=== PATIENT | male | born 1960 | race Caucasian/White ===

== ENCOUNTER 2018-09-05 06:57 | Outpatient (CLI) | payer OTHER ==
[~2018-09-05] VITALS: Ht 185.4 cm; Wt 75.3 kg
[2018-09-05] VITALS (10 sets, daily range): BP systolic 120–151; BP diastolic 68–83
[2018-09-05 07:35] LABS: HEMATOCRIT 45.8 % (39.0-53.0); HEMOGLOBIN 16.1 g/dL (13.0-17.5); RED BLOOD COUNT 4.75 x10^6/uL (4.30-5.70); RED CELL DISTRIBUTION WIDTH 15.3 % (11.5-14.5); WHITE BLOOD COUNT 6.7 x10^3/uL (4.0-11.0)
[2018-09-05] MEDS ORDERED: LIDOCAINE 1% Multi-Dose 20 ML VIAL. ONE (07:41)
[2018-09-05] MEDS ORDERED: IODIXANOL 320 MG/ML 100 ML VIAL. ONE (07:41)
[2018-09-05] MEDS ORDERED: HEPARIN for ARTERIAL LINE 1,500 ML ONE (07:41)
[2018-09-05 07:45] LABS: CALCIUM 9.3 mg/dL (8.5-10.1); CREATININE 0.9 mg/dL (0.7-1.3); GFR 86.7; POTASSIUM 4.2 mmol/L (3.5-5.1)
[2018-09-05 07:47] LABS: PROTHROMBIN TIME PATIENT 13.2 SEC (11.7-14.0)
[2018-09-05] MEDS ORDERED: potassium OTC PO (07:53)
[2018-09-05] MEDS ORDERED: LISI-130 PO (07:53)
[2018-09-05] MEDS ORDERED: OMEG1CAP38 PO (07:53)
[2018-09-05] MEDS ORDERED: ASPI81TA50 PO (07:53)
[2018-09-05] MEDS ORDERED: ATOR10TA60 PO (07:53)
[2018-09-05] MEDS ORDERED: fentaNYL PF VIAL 100 MCG/2 ML VIAL ONE (08:19)
[2018-09-05] MEDS ORDERED: NITROGLYCERIN 200 MCG/2 ML SYRINGE FOR CATH/VASC LAB. ONE ×2 (08:19→09:01)
[2018-09-05] MEDS ORDERED: MIDAZOLAM HCL/PF 2 MG/2 ML VIAL. ONE (08:19)
[2018-09-05] MEDS ORDERED: VERAPAMIL 5 MG/2 ML VIAL. ONE (08:19)
[2018-09-05] MEDS ORDERED: HEPARIN for IV BOLUS 10,000 UNIT/10 ML VIAL. ONE (08:19)
[2018-09-05] MEDS ORDERED: LIDOCAINE 2% 20 ML VIAL. IJ ONE (09:15)
[2018-09-05] MEDS ORDERED: CONTRAST GIVEN. MC PRN (09:15)
[2018-09-05] MEDS ORDERED: IODIXANOL 320 MG/ML 100 ML VIAL. IART ONE (09:15)
[2018-09-05] MEDS ORDERED: MIDAZOLAM HCL/PF 2 MG/2 ML VIAL. IV ONE (09:15)
[2018-09-05] MEDS ORDERED: fentaNYL PF VIAL 100 MCG/2 ML VIAL IV ONE (09:15)
[2018-09-05] MEDS ORDERED: NITROGLYCERIN 200 MCG/2 ML SYRINGE FOR CATH/VASC LAB. IART ONE (09:15)
[2018-09-05] MEDS ORDERED: HEPARIN for IV BOLUS 10,000 UNIT/10 ML VIAL. IART ONE (09:15)
[2018-09-05] MEDS ORDERED: VERAPAMIL 5 MG/2 ML VIAL. IART ONE (09:15)
[2018-09-05] MEDS ORDERED: HEPARIN for IV BOLUS 10,000 UNIT/10 ML VIAL. IV ONE (09:15)
--- NOTE | 2018-09-05 11:17 | CARD ---
MR#: [id number] Date of Study: 09/05/2018 Ordering Physician: ROMAN GARVEY, Referring Physician: ROMAN GARVEY, Tech: RT Rhiannon (R) FRANCY APPROVED REPORT Technologist: RT Rhiannon (R) FRANCY Nurse: Hazel Rabago R.N. Procedure(s) performed: MOD SED:53 min CONTRAST TOTAL: 87ML DAP:33.4 Gycm2 fluoro time: 5.6 min LHC, Coronary angiography HISTORY : The patient is a 57 year-old male with a history of . INDICATION The indication(s) include : unstable angina , dyspnea. CS Clinical Frailty Scale CSHA Clinical Frailty Scale: Vulnerable Heart Failure Heart Failure: No PROCEDURE NARRATIVE INFORMED CONSENT: After explaining the risks and benefits of the procedure and alternatives, informed consent was obtained. The patient was brought electively to the cardiac catheterization lab. A timeout was performed confi rming the patient's name, date of , procedure, and site of procedure. All necessary personnel w ere wearing the appropriate protective equipment and radiation monitor devices. (See nursing notes for medications administered). ACCESS: The right wrist was sterilely prepped and draped in the usual fashion. The right wrist was infiltrat ed with 1 mL of 2% lidocaine for subcutaneous anesthesia. A 6 British Terumo glide sheath was inserte d into the right radial artery without difficulty. CORONARY ANGIOGRAPHY: Right and left coronary angiography was performed using a 6Fr TIG 4.0 catheter. Left ventricular en d diastolic pressure was obtained with a pigtail catheter and pullback was performed. All catheter e xchanges and advancements were performed over a guidewire. CLOSURE: At case completion the right radial sheath was removed and a Terumo radial band was applied with 13 m l of air. COMPLICATIONS: The patient tolerated the procedure well and there were no immediate complications. FINDINGS: HEMODYNAMICS: LVEDP 5 mm Hg No gradient on LV to aortic pullback. AO: 128/78 LEFT VENTRICULOGRAM:Deferred, see echo report CORONARY ANGIOGRAPHY: LM is a large caliber vessel with normal angiographic appearance. LAD is a large caliber vessel with serial 50-60% stenoses in the proximal and mid segment and a mid f ocal 70% stenosis. D1 is a moderate caliber vessel with proximal 50% stenosis. LCx is a moderate caliber non-dominant vessel with a mid 60% stenosis extending into OM1. RCA is a large caliber dominant vessel with a proximal 100% occlusion RPDA and RPL are moderate caliber vessels with normal angiographic appearance. INTERVENTIONAL TECHNIQUE: iFR of the LAD, iFR of the Lcx. Based upon the intermediate stenoses in the LAD and circumflex a ischemic physiologic study was perfo rmed. Heparin was used for an to regulation. Through a 6 British EBU 3.5 guide catheter a 0.014 inch p ressure wire was advanced to the distal LAD after appropriate normalization and intracoronary nitrogl ycerin administration the IFR value was measured at 0.6. Subsequently, the wire was redirected into t he left circumflex where an IFR value of 0.74 was obtained. Final angiography after IFR valuation did not reveal any guide or wire related complications. The pat ient tolerated the procedure well. Conclusion 1. Normal left-sided filling pressures. 2. Three-vessel coronary artery disease with positive IFR of the LAD and circumflex. Recommendations Aggressive medical therapy. Evaluation of pulmonary disease to determine contribution of pulmonary disease to his dyspnea. Plan f or PFTs in the near future. Continue medical therapy for cardiac issues including aspirin, statin and blood pressure control. Cardiac surgery consultation has been obtained. Neurology evaluation for dizziness Signed by : Roman Garvey, Electronically Approved : 09/05/2018 11:17:29
--- NOTE | 2018-09-05 11:52 | NUR ---
Discharge Note: LIANNE SCHWAB [facility] Discharge instructions and discharge home medications reviewed with Patient and a copy given. All questions have been answered and understanding verbalized. The following instructions and handouts were given: radial site care,moderate sedation and smoking cessation Discontinued lines and drains: Peripheral IV intact. Patient discharged to Home or Self Care withSignificant Othervia Ambulated Patient needs to have echocardiogram but wanted to go outside to smoke first. IV was removed and patient informed that he would need to be restuck if an IV was needed for echocardiogram. Echo was notified that patient left to smoke and stated he would be back later. Informed patient and his significant other that they would need to check in at [facility] for [facility], both verbalized understanding.
== END 2018-09-05 11:30 | disposition home or self-care (01) ==
LOC: CCL 06:57
PROVIDERS: ATTEND Internal Medicine Cardiovascular Disease
DX: I25.110 Atherosclerotic heart disease of native coronary artery with unstable angina pectoris (principal); I10 Essential (primary) hypertension; J44.9 Chronic obstructive pulmonary disease, unspecified; Z85.828 Personal history of other malignant neoplasm of skin; F17.210 Nicotine dependence, cigarettes, uncomplicated; Z72.89 Other problems related to lifestyle; Z98.890 Other specified postprocedural states
CPT/HCPCS: 36415; 80048; 85027; 85610; 93458; 93571; 99152; 99153; C1769; C1887; C1892; J1644; J2001; J2250; J3010; J3490; Q9967

== ENCOUNTER → 2018-10-21 | Outpatient (CLI) | payer OTHER ==
[2018-09-05 11:15] VITALS: BP 147/75
[~2018-10-21] MED LIST: ASPI81TA50 PO; ATOR10TA60 PO; GLYC10.7 IH; LISI-130 PO; OMEG1CAP38 PO; VARE1TAB21 PO; potassium OTC PO
--- NOTE | 2018-10-21 11:25 | CARD ---
MR#: [id number] Date of Study: 10/21/2018 Ordering Physician: CATHERINE TORREZ, Referring Physician: CATHERINE TORREZ Tech: Sharifa Salinas JUSTO APPROVED REPORT EXAM: Two-dimensional and M-mode echocardiogram with Doppler and color Doppler. Other Information Quality : Fair INDICATION Cardiac Disease: CAD Pre-Op CABG RISK FACTORS Smoking 2D DIMENSIONS RVDd2.6 (2.9-3.5cm)Left Atrium(2D)3.3 (1.6-4.0cm) IVSd1.0 (0.7-1.1cm)Aortic Root(2D)2.7 (2.0-3.7cm) LVDd4.5 (3.9-5.9cm)LVOT Diameter2.2 (1.8-2.4cm) PWd0.9 (0.7-1.1cm)LVDs1.8 (2.5-4.0cm) FS (%) 30.0 %SV82.9 ml LVEF(%)60.0 (>50%) Aortic Valve AoV Peak Everett.137.7cm/sAoV VTI29.0cm AO Peak GR.7.6mmHgLVOT Peak Everett.125.6cm/s LVOT VTI 25.72cmAO Mean GR.4mmHg CAMILLE (VMAX)3.54ht5SZV (VTI)3.34cm2 Mitral Valve MV E Jrcoqtuz77.9cm/sMV DECEL [id number] MV A Tmcilnpf102.7cm/sMV UVR76ka E/A Ratio0.8MVA (PHT)2.94cm2 TDI E/Lateral E'12.1E/Medial E'14.6 Tricuspid Valve TR P. Feypwlqo728al/sRAP JWPFPQLY1clSr TR Peak Gr.33llFoMXYT48jnUy Pulmonary Vein S1 Bvyklpgm09.9cm/sD2 Bskwytvk97.6cm/s LEFT VENTRICLE The left ventricle is normal size. There is normal left ventricular wall thickness. The left ventricu lar systolic function is normal. The Ejection Fraction is 60-65%. There is normal LV segmental wall m otion. Transmitral Doppler flow pattern is Grade I-abnormal relaxation pattern. RIGHT VENTRICLE The right ventricle is normal size. The right ventricular systolic function is normal. ATRIA The left atrium size is normal. The right atrium size is normal. The interatrial septum is intact wit h no evidence for an atrial septal defect or patent foramen ovale as noted on 2-D or Doppler imaging. AORTIC VALVE The aortic valve is calcified but opens well. Doppler and Color Flow revealed no significant aortic r egurgitation. There is no significant aortic valvular stenosis. MITRAL VALVE The mitral valve is calcified but opens well. There is no evidence of mitral valve prolapse. There is no mitral valve stenosis. Doppler and Color-flow revealed mild mitral regurgitation. TRICUSPID VALVE The tricuspid valve is normal in structure and function. Doppler and Color Flow revealed trace tricus pid regurgitation. There is mild pulmonary hypertension. The PA pressure was estimated at 32 mmHg. Th ere is no tricuspid valve stenosis. PULMONIC VALVE The pulmonic valve is not well visualized. Doppler and Color Flow revealed no pulmonic valvular regur gitation. There is no pulmonic valvular stenosis. GREAT VESSELS The aortic root is normal in size. The ascending aorta is not well seen. The IVC is normal in size an d collapses >50% with inspiration. PERICARDIAL EFFUSION There is no evidence of significant pericardial effusion. Critical Notification Critical Value: No <Conclusion> The left ventricular systolic function is normal. The Ejection Fraction is 60-65%. There is normal LV segmental wall motion. Transmitral Doppler flow pattern is Grade I-abnormal relaxation pattern. Mild mitral regurgitation. Trace tricuspid regurgitation. The PA pressure was estimated at 32 mmHg. There is no evidence of significant pericardial effusion. Signed by : Buster Schuster, Electronically Approved : 10/21/2018 11:24:53
== END | disposition home or self-care (01) ==
LOC: ECHO 09:25
PROVIDERS: ATTEND Thoracic Surgery (Cardiothoracic Vascular Surgery)
DX: Z01.818 Encounter for other preprocedural examination (principal); I08.0 Rheumatic disorders of both mitral and aortic valves; I27.20 Pulmonary hypertension, unspecified; I25.10 Atherosclerotic heart disease of native coronary artery without angina pectoris; Z95.1 Presence of aortocoronary bypass graft
CPT/HCPCS: 93306

== ENCOUNTER → 2018-10-23 | Outpatient (CLI) | payer OTHER ==
[2018-09-05 11:15] VITALS: BP 147/75
[2018-10-23 14:16] LABS: BASO % 1 % (0-3); EOS # 0.4 x10^3/uL (0.0-0.7); EOS % 4 % (0-3); HEMATOCRIT 40.8 % (39.0-53.0); HEMOGLOBIN 14.2 g/dL (13.0-17.5); LYMPH # 1.7 x10^3/uL (1.0-4.8); LYMPH % 18 % (24-48); MEAN CORPUSCULAR HEMOGLOBIN 33 pg (25-35); MEAN CORPUSCULAR HGB CONC 35 g/dL (31-37); MEAN CORPUSCULAR VOLUME 96 fL (79-100); MONO # 0.8 x10^3/uL (0.0-1.1); MONO % 8 % (0-9); NEUT # 6.5 x10^3/uL (1.8-7.7); NEUT % 69 % (31-73); PLATELET COUNT 412 x10^3/uL (140-400); RED BLOOD COUNT 4.27 x10^6/uL (4.30-5.70); RED CELL DISTRIBUTION WIDTH 14.9 % (11.5-14.5); WHITE BLOOD COUNT 9.4 x10^3/uL (4.0-11.0)
[2018-10-23 14:32] LABS: PROTHROMBIN TIME PATIENT 13.3 SEC (11.7-14.0)
[2018-10-23 14:33] LABS: CALCIUM 9.3 mg/dL (8.5-10.1); CREATININE 0.9 mg/dL (0.7-1.3); GFR 86.7; POTASSIUM 4.2 mmol/L (3.5-5.1); TOTAL BILIRUBIN 0.3 mg/dL (0.2-1.0); TOTAL PROTEIN 7.9 g/dL (6.4-8.2)
--- NOTE | 2018-10-23 15:26 | RAD ---
CHEST PA LATERAL CLINICAL INDICATION: Preop chest x-ray. COMPARISON: None FINDINGS: Heart is normal in size. Lungs are clear. No pneumothorax or pleural effusion. Visualized bony thorax is within normal limits. IMPRESSION: No acute pulmonary process. Electronically signed by: Joe Gilbert DO (10/23/2018 3:23 PM) [facility]
[2018-10-23 23:10] LABS: HEMOGLOBIN A1C 6.2 % (4.8-5.6)
== END | disposition home or self-care (01) ==
LOC: SURGPAT 12:38
PROVIDERS: ATTEND Thoracic Surgery (Cardiothoracic Vascular Surgery)
DX: Z01.818 Encounter for other preprocedural examination (principal); I25.10 Atherosclerotic heart disease of native coronary artery without angina pectoris
CPT/HCPCS: 36415; 71046; 80053; 83036; 85025; 85610; 85730; 87641

== ENCOUNTER → 2018-10-25 | Outpatient (CLI) | payer OTHER ==
[2018-09-05 11:15] VITALS: BP 147/75
--- NOTE | 2018-10-25 09:41 | RAD ---
Ultrasound carotid Doppler 10/25/2018 9:00 AM INDICATION: History, preoperative COMPARISON: None available TECHNIQUE: Sonographic imaging of the carotid vasculature was performed utilizing grayscale, color Doppler and spectral waveform analysis. FINDINGS: (All velocities are measured cm per second) Right carotid: Moderate calcified and noncalcified atheromatous plaque is identified at the distal common carotid artery and carotid bifurcation resulting in less than 50% luminal stenosis. Peak systolic velocity: Proximal common carotid artery: 142 Middle common carotid artery: 142 Distal common carotid artery: Aberrant 7 Proximal internal carotid artery: 77 Middle internal carotid artery: 112 Distal internal carotid artery: 108 End-diastolic velocity: 43 External carotid artery: 198 Internal carotid artery/common carotid artery ratio: Less than 1.0 Vertebral artery: Antegrade flow. Left carotid: Peak systolic velocity: Proximal common carotid artery: 18 Middle common carotid artery: 33 Distal common carotid artery: Occluded Proximal internal carotid artery: Occluded Middle internal carotid artery: Occluded Distal internal carotid artery: Occluded End-diastolic velocity: Occluded External carotid artery: Not definitively visualized. Internal carotid artery/common carotid artery ratio: Occluded Vertebral artery: Antegrade flow. IMPRESSION: 1. Occluded left distal common carotid artery and left internal carotid artery. 2. 50-69% stenosis involving the proximal right cervical internal carotid artery with elevated end-diastolic velocity. 3. Evaluation of the carotid vasculature and measurements for luminal stenosis was performed utilizing NASCET criteria. Electronically signed by: Yola Henderson MD (10/25/2018 9:39 AM) [id number]
--- NOTE | 2018-10-25 09:53 | RAD ---
PQRS Compliance statement: One or more of the following individualized dose reduction techniques were utilized for this examination: 1. Automated exposure control. 2. Adjustment of the mA and/or kV according to patient size. 3. Use of iterative reconstruction technique. Indication:Chest pain. TECHNIQUE: CT chest without IV contrast with multiplanar reformats. COMPARISON:None FINDINGS: Heart is normal in size. No pericardial or effusion. Coronary artery calcifications. Moderate atherosclerotic plaque in the aortic arch. Clear neck base. No enlarged axillary or mediastinal adenopathy. Evaluation of hilar lymphadenopathy is limited due to lack of IV contrast. Mild atherosclerotic plaque in the thoracic aorta and upper abdominal aorta. Small sliding hiatal hernia. Central airways are patent. Lungs are clear. Visualized noncontrast sections through the liver, spleen, gallbladder, pancreas, left adrenal within normal limits. Right adrenal adenoma measuring 1.3 cm. Punctate couple of stones in the bilateral kidneys. Partially exophytic left renal lesion measuring 1.3 cm along the medial aspect of the interpolar left kidney. Small sliding hiatal hernia. No suspicious bony lesion. IMPRESSION: 1. Clear lungs. 2. Indeterminate medial left renal lesion. Nonemergent MRI of the abdomen with IV contrast is recommended. Alternatively triple phase CT of the kidneys recommended. Electronically signed by: Joe Gilbert DO (10/25/2018 9:50 AM) [facility]
--- NOTE | 2018-10-25 15:38 | RAD ---
Bilateral lower extremity venous mapping 10/25/2018 INDICATION: Preoperative for surgery. COMPARISON: None available. TECHNIQUE: Sonographic evaluation of the bilateral lower extremity venous system was performed utilizing grayscale and spectral waveform analysis. FINDINGS: Right: Greater saphenous vein: Saphenous femoral junction: 0.5 cm Proximal thigh: 0.3 cm Mid thigh: 0.2 cm Distal thigh: 0.2 cm Popliteal: 0.2 cm Proximal calf: 0.1 cm Distal calf: 0.1 cm Ankle: 0.1 cm Lesser saphenous vein: Proximal calf: 0.2 cm Mid calf: 0.1 cm Distal calf: 0.1 cm Left: Greater saphenous vein: Saphenous femoral junction: 0.4 cm Proximal thigh: 0.3 cm Mid thigh: 0.3 cm Distal thigh: 0.1 cm Popliteal: 0.2 cm Proximal calf: 0.2 cm Distal calf: 0.1 cm Ankle: 0.1 cm Lesser saphenous vein: Proximal calf: 0.2 cm Mid calf: 0.1 cm Distal calf: 0.1 cm IMPRESSION: Measurements of the greater and lesser saphenous veins are provided above. Electronically signed by: Yola Henderson MD (10/25/2018 3:35 PM) [id number]
== END | disposition home or self-care (01) ==
LOC: US 07:41
PROVIDERS: ATTEND Thoracic Surgery (Cardiothoracic Vascular Surgery)
DX: Z01.810 Encounter for preprocedural cardiovascular examination (principal); I25.10 Atherosclerotic heart disease of native coronary artery without angina pectoris; I65.23 Occlusion and stenosis of bilateral carotid arteries; I70.0 Atherosclerosis of aorta; K44.9 Diaphragmatic hernia without obstruction or gangrene; D35.01 Benign neoplasm of right adrenal gland; N28.9 Disorder of kidney and ureter, unspecified; N20.0 Calculus of kidney
CPT/HCPCS: 71250; 93880; 93970

== ENCOUNTER → 2018-11-01 | Outpatient (CLI) | payer OTHER ==
[2018-09-05 11:15] VITALS: BP 147/75
[~2018-11-01] MED LIST changes: +IOHEXOL 350 MG/ML 100 ML VIAL. IV ONE
--- NOTE | 2018-11-01 10:55 | RAD ---
Exam: CT ANGIOGRAPHY NECK Date: 11/01/2018 8:30 AM Indication: Abnormal carotid Doppler ultrasound Comparison: Carotid ultrasound 10/25/2018 Technique: CT angiogram of neck was obtained with bolus injection of 75 mL of Omnipaque 350. The images were sent to workstation and multiplanar reconstructions were obtained. Multiplanar reconstruction images to include MIP and 3-D reconstruction images are submitted. One or more of the following dose reduction techniques were utilized: Automated exposure control (AEC), Adjustment of mA and/or kV according to patient size, Use of iterative reconstruction technique such as ASiR, CT scan done according to ALARA and image gently/image wisely Findings: Right carotid: The right common carotid artery is atherosclerotic, but patent and normal caliber. Atherosclerosis of the carotid bifurcation. 25% stenosis of the right internal carotid artery per NASCET criteria. The right external carotid artery is patent. Left carotid: The left common carotid artery is atherosclerotic and demonstrates high-grade narrowing at its origin and proximally, with mid and distal occlusion. The left cervical internal carotid artery is occluded, and occlusion extends up through the intracranial ICA cavernous segment. There is retrograde/collateral filling of the intracranial left ICA terminus to the ophthalmic segment. The left external carotid artery is occluded at its origin, with some filling of distal branches via collaterals. Right vertebral: Moderate atherosclerosis at the origin of the right vertebral artery, which is otherwise patent and normal caliber. Left vertebral: Mild atherosclerosis at the origin of the left vertebral artery, which is otherwise patent and normal caliber.. Atherosclerosis of the aortic arch. The origins of the brachiocephalic and subclavian arteries are atherosclerotic, with 25-50% narrowing. No cervical lymphadenopathy. Subcentimeter hypoattenuating right thyroid lobe nodule. The parotid and submandibular glands are normal. The visualized aerodigestive tract is unremarkable. Mild multilevel degenerative disc height loss. Centrilobular and paraseptal emphysema in the visualized lung apices. Impression: 1. High-grade stenosis of the left proximal CCA, with occlusion of the left mid and distal CCA. Complete occlusion of the left cervical ICA extending intracranially. Retrograde/collateral filling of the left intracranial ICA from the terminus to the ophthalmic segment. 2. Atherosclerosis of the right ICA with 25% stenosis. 3. Atherosclerotic narrowing at the vertebral artery origins, moderate on the right and mild on the left. PQRS Compliance Statement - Stenosis calculations for CT, MR and conventional angiography are based upon measurement of the distal ICA diameter in accordance with the NASCET methodology. Electronically signed by: Kristofer uBrnette MD (11/01/2018 10:52 AM) [id number]
== END | disposition home or self-care (01) ==
LOC: CT 09:21
PROVIDERS: ATTEND Thoracic Surgery (Cardiothoracic Vascular Surgery)
DX: I65.23 Occlusion and stenosis of bilateral carotid arteries (principal); I70.8 Atherosclerosis of other arteries; I70.0 Atherosclerosis of aorta
CPT/HCPCS: 70498; Q9967

== ENCOUNTER → 2018-12-03 | Outpatient (CLI) | payer OTHER ==
[2018-09-05 11:15] VITALS: BP 147/75
[~2018-12-03] MED LIST changes: -IOHEXOL 350 MG/ML 100 ML VIAL. IV ONE
[2018-12-03 10:01] LABS: BASO % 0 % (0-3); EOS # 0.3 x10^3/uL (0.0-0.7); EOS % 5 % (0-3); HEMATOCRIT 38.3 % (39.0-53.0); HEMOGLOBIN 13.5 g/dL (13.0-17.5); LYMPH # 1.6 x10^3/uL (1.0-4.8); LYMPH % 27 % (24-48); MEAN CORPUSCULAR HEMOGLOBIN 33 pg (25-35); MEAN CORPUSCULAR HGB CONC 35 g/dL (31-37); MEAN CORPUSCULAR VOLUME 95 fL (79-100); MONO # 0.5 x10^3/uL (0.0-1.1); MONO % 8 % (0-9); NEUT # 3.6 x10^3/uL (1.8-7.7); NEUT % 61 % (31-73); PLATELET COUNT 418 x10^3/uL (140-400); RED BLOOD COUNT 4.04 x10^6/uL (4.30-5.70); RED CELL DISTRIBUTION WIDTH 15.1 % (11.5-14.5); WHITE BLOOD COUNT 5.9 x10^3/uL (4.0-11.0)
[2018-12-03 10:09] LABS: PROTHROMBIN TIME PATIENT 12.6 SEC (11.7-14.0)
[2018-12-03 10:10] LABS: ALBUMIN 3.8 g/dL (3.4-5.0); CREATININE 0.9 mg/dL (0.7-1.3); GFR 86.4; POTASSIUM 4.5 mmol/L (3.5-5.1); TOTAL BILIRUBIN 0.5 mg/dL (0.2-1.0); TOTAL PROTEIN 7.6 g/dL (6.4-8.2)
== END | disposition home or self-care (01) ==
LOC: SURGPAT 08:28
PROVIDERS: ATTEND Thoracic Surgery (Cardiothoracic Vascular Surgery)
DX: Z01.818 Encounter for other preprocedural examination (principal); I25.10 Atherosclerotic heart disease of native coronary artery without angina pectoris; Z91.013 Allergy to seafood
CPT/HCPCS: 36415; 80053; 85025; 85610; 85730; 87641

== ENCOUNTER → 2018-12-10 | Outpatient (CLI) | payer OTHER ==
[2018-09-05 11:15] VITALS: BP 147/75
--- NOTE | 2018-12-12 13:51 | RESP ---
DATE OF SERVICE: 12/10/2018 PULMONARY FUNCTION TESTS The patient's FEV1 was 3.59, which is 92% predicted; FVC 5.54, which is 108% predicted. The FEV1/FVC ratio was reduced. FNC88-60 was 39% predicted. No bronchodilators given. Total lung capacity was 145% predicted, residual volume 240% predicted. Diffusion capacity normal. IMPRESSION: 1. Spirometry finding consistent with small airway dysfunction. 2. Lung volumes consistent with air trapping and hyperinflation. 3. No bronchodilators given. 4. Normal diffusion capacity. MELINDA WRIGHT MD DR: MOY/jose JOB#: [id number] / [id number]
== END | disposition home or self-care (01) ==
LOC: PF 10:45
PROVIDERS: ATTEND Thoracic Surgery (Cardiothoracic Vascular Surgery)
DX: I25.10 Atherosclerotic heart disease of native coronary artery without angina pectoris (principal); Z95.1 Presence of aortocoronary bypass graft
CPT/HCPCS: 36415; 86850; 86900; 86901; 86920; 94010; 94729

== ENCOUNTER → 2019-01-02 | Outpatient (CLI) | payer OTHER ==
[2018-12-16 11:00] VITALS: BP 117/69
[~2019-01-02] MED LIST changes: +ACET325T9 PO; +AMIO200T4 PO; +ASPI325T11 PO; +ATOR40TA59 PO; +FAMO20TA5 PO; +GADOTERATE 7.5 MMOL/15ML VIAL. IVP ONE; +METO25TA4 PO; +OXYC5TAB4 PO; +SENN-22 PO
--- NOTE | 2019-01-02 10:08 | RAD ---
MRI Brain with and without contrast History: Giant cell arteritis Technique: Multiplanar, multi sequential pre and postcontrast MR imaging was performed of the brain. Comparison: None Findings: There is a small somewhat subtle 4 to 5 mm focus of restricted diffusion of the left frontal deep white matter, separate more posterior focus of the left centrum semiovale about 0.2 cm. There is scattered multifocal nusv-vi-zysuwamu T2 and FLAIR hyperintense signal abnormality of the supratentorial parenchyma bilaterally. There is mild increased diffusion signal of more confluent focus of the left casas radiata although hyperintense on ADC map. There is no midline shift, extra-axial fluid collection, nodular parenchymal or leptomeningeal enhancement. There is abnormal signal of the left internal carotid artery at skull base extending to the disc left cervical internal carotid artery. Left cervical internal carotid artery occlusion was seen on previous November 01, 2018 CTA exam of the neck. There are scattered small foci of hemosiderin deposition/old microhemorrhage including the posterior right parietal lobe, bilateral cerebellum, left temporal lobe. There is slightly disconjugate gaze. There is patchy very minimal ethmoid air cell and frontal sinus mucosal thickening. There is mild thickening of the bilateral mastoid air cells. Pituitary gland is small. Cerebellar tonsils are normal in location. Impression: 1. There are a couple of subtle foci of restricted diffusion of the left frontal deep white matter and centrum semiovale likely late subacute infarcts. There is other multifocal T2 and FLAIR hyperintense signal abnormality of the supratentorial parenchyma probably due to chronic microvascular ischemic disease. There is abnormal signal in the left internal carotid artery at the skull base, left cervical internal carotid artery occlusion seen on previous CTA neck. There are a few scattered foci of old microhemorrhage as stated. Electronically signed by: Kristofer Jeff MD (01/02/2019 10:05 AM) [id number]
== END | disposition home or self-care (01) ==
LOC: MRI 08:38
PROVIDERS: ATTEND Ophthalmology
DX: I65.22 Occlusion and stenosis of left carotid artery (principal); I25.2 Old myocardial infarction; I10 Essential (primary) hypertension; J44.9 Chronic obstructive pulmonary disease, unspecified; Z79.01 Long term (current) use of anticoagulants; Z79.82 Long term (current) use of aspirin
CPT/HCPCS: 70553; A9575